=== PATIENT | male | born 1945 | race Caucasian/White ===

== ENCOUNTER 2020-10-07 21:37 | Emergency (ER) | payer OTHER ==
[~2020-10-07] VITALS: Ht 177.8 cm; Wt 95.7 kg
[2020-10-07 22:30] VITALS: BP 120/70
[2020-10-07] MEDS ORDERED: LOPERAMIDE HCL 2 MG CAP PO ONE ×2 (23:00→23:05)
[2020-10-07] MEDS ORDERED: ONDANSETRON ODT 4MG TAB SL ONE (23:00)
[2020-10-07] MEDS ORDERED: PROMETHAZINE HCL 25 MG/ML 1ML AMPULE IM ONE (23:00)
[2020-10-07] MEDS ORDERED: ONDANSETRON ODT 4MG TAB ONE (23:05)
[2020-10-08] MEDS ORDERED: ONDA4TAB10 PO (00:46)
[2020-10-08] MEDS ORDERED: DICY20TA2 PO (00:46)
[2020-10-08] MEDS ORDERED: METO-296 PO (00:46)
[2020-10-08 00:51] VITALS: BP 123/76
== END 2020-10-08 01:05 | disposition home or self-care (01) ==
LOC: EDH 21:37 → EDSEX 21:37 → EDH 10-08 01:05
DX: R19.7 Diarrhea, unspecified (principal); R11.0 Nausea; F03.90 Unspecified dementia, unspecified severity, without behavioral disturbance, psychotic disturbance, mood disturbance, and anxiety; Z79.899 Other long term (current) drug therapy; Z88.1 Allergy status to other antibiotic agents
CPT/HCPCS: 96372; 99283; J2550